=== PATIENT | male | born 1975 | race Caucasian/White ===

== ENCOUNTER 2023-04-07 00:28 | Day surgery (SDC) | payer BC, SELFPAY ==
[2023-03-27 15:03] VITALS: BMI 29.3
[2023-04-07 07:39] VITALS: BP 128/76; PULSE 60; RESP 18; TEMP 36.1; O2SAT 100; BMI 28.0
[2023-04-07] MEDS: LACTATED RINGERS 1,000 ML 150 ML IV CONT (07:47)
--- NOTE | 2023-04-07 08:18 | P.PNAN_ITS ---
Anes - Initial Pre Proc Eval Procedure: Operation Date: 04/07/23 08:30 Proposed Procedures p Screening Colonoscopy - Arturo Eagle MD Date/Time: 04/07/23 08:18 Surgeon: Arturo Eagle MD Pre Op Diagnosis: neoplasm screening Patient Data Age: 47 Gender: M Height: 1.78 m Weight: 88.5 kg Last Vital Signs Temp 97.0 F L 04/07/23 07:39 Pulse 60 04/07/23 07:39 Resp 18 04/07/23 07:39 BP 128/76 04/07/23 07:39 Pulse Ox 100 04/07/23 07:39 O2 Del Method Room Air 04/07/23 07:39 Allergies Allergy/AdvReac Type Severity Reaction Status Date / Time No Known Allergies Allergy Unknown Verified 03/27/23 15:18 Home Medications Medication Instructions Recorded Confirmed Type cetirizine 10 mg capsule (Zyrtec) 10 mg PO DAILY PRN Runny Nose 02/03/23 04/07/23 History multivitamin (One Daily 1 ea PO DAILY 02/03/23 04/07/23 History Multivitamin oral powder packet) Patient hx anesthesia problems: none Family hx anesthesia problems: none Results Review: All pre-operative results and documents have been reviewed as part of the pre- operative evaluation. PMFSH Past Medical History Medical History (Updated 04/07/23 @ 08:20 by Arturo Eagle MD) Hypercholesteremia Family History Family History (Updated 02/03/23 @ 11:13 by Nasim Pope MD) Father Heart disease Hypertension Mother Hypertension Grandparent Heart disease Grandparent Heart disease Diabetes mellitus Dementia Social History Social History (Updated 02/03/23 @ 11:04 by Linnea Rogers MA) Smoking status: Never smoker Alcohol intake: current Drinks per week: 30 Substance use: never Substance use type: does not use Lack of Transportation: No Lack of Food: Never True Current Housing: I Have Housing Concerned About Future Housing: No Difficulty Paying Gas/Electric Bills: No Difficulty Paying for Meds: No Currently Unemployed: No Education: Associate Degree Difficulty w/ Childcare or Family Care: No Living arrangements: with family Occupation/Education: occupation Gender identity (if verbalized by the patient): Male Sexual Orientation (if Verbalized by the Patient): Straight or Heterosexual Spiritual care concerns: No Anes - Eval Final PreProcedure Day of Procedure 04/07/23 08:18 Patient weight: normal Heart: regular rate and rhythm Lungs: clear to auscultation Airway: Mallampati scale class II Neurological: alert and oriented Last oral intake: >/= 8 hours ASA classification: II Emergent: no Anesthetic plan: proceed Anesthesia type and monitoring: general GIVS and standard monitoring Results Review: All pre-operative results and documents have been reviewed as part of the pre- operative evaluation. Informed Consent: The patient's anesthetic plan and its attendant risks and benefits were discussed with the patient/family/POA. Questions were solicited and answers provided to the satisfaction of the patient/family/POA.
--- NOTE | 2023-04-07 08:19 | PM.HPGS ---
History of Present Illness History of Present Illness Consent: Risks, benefits, and alternatives have been discussed and questions answered. Patient agrees to proceed with procedure. Chief complaint: neoplasm screening Narrative: Logan Da Silva III is a 47 year old male Presents for screening colonoscopy. Patient's current weight appetite and bowel movements are normal. Patient denies abdominal pain. He has had no bleeding. Family history noncontributory. Review of Systems Review of Systems: Review of systems noncontributory. [facility], [facility] Past Medical History Medical History (Updated 04/07/23 @ 08:20 by Arturo Eagle MD) Hypercholesteremia Family History Family History (Updated 02/03/23 @ 11:13 by Nasim Pope MD) Father Heart disease Hypertension Mother Hypertension Grandparent Heart disease Grandparent Heart disease Diabetes mellitus Dementia Social History Social History (Updated 02/03/23 @ 11:04 by Linnea Rogers MA) Smoking status: Never smoker Alcohol intake: current Drinks per week: 30 Substance use: never Substance use type: does not use Lack of Transportation: No Lack of Food: Never True Current Housing: I Have Housing Concerned About Future Housing: No Difficulty Paying Gas/Electric Bills: No Difficulty Paying for Meds: No Currently Unemployed: No Education: Associate Degree Difficulty w/ Childcare or Family Care: No Living arrangements: with family Occupation/Education: occupation Gender identity (if verbalized by the patient): Male Sexual Orientation (if Verbalized by the Patient): Straight or Heterosexual Spiritual care concerns: No Meds Home Medications and Allergies Home Medications Medication Instructions Recorded Confirmed Type cetirizine 10 mg capsule (Zyrtec) 10 mg PO DAILY PRN Runny Nose 02/03/23 04/07/23 History multivitamin (One Daily 1 ea PO DAILY 02/03/23 04/07/23 History Multivitamin oral powder packet) Allergies Allergy/AdvReac Type Severity Reaction Status Date / Time No Known Allergies Allergy Unknown Verified 03/27/23 15:18 Vital Signs Vital Signs - 24 hr 04/07/23 07:39 Temperature 97.0 F L Pulse Rate 60 Respiratory Rate 18 Blood Pressure 128/76 Pulse Oximetry 100 Oxygen Delivery Room Air Exam Narrative: Physical exam reveals patient to be alert. Vital signs stable. HEENT exam is unremarkable. Patient is anicteric. Lungs are clear to auscultation and percussion. Heart is without murmur or extra sounds. Abdomen bowel sounds are present soft nontender with no organomegaly. Digital external rectal exam is normal. Assessment and Plan Assessment and plan (1) Encounter for screening colonoscopy: Code(s): Z12.11 - Encounter for screening for malignant neoplasm of colon Status: Acute Assessment and Plan: Patient presents for screening colonoscopy. Appears to be at average risk for colon polyps. Further recommendations may be given after endoscopy.
[2023-04-07 08:45] VITALS: BP 122/77; PULSE 63; RESP 20; O2SAT 100
[2023-04-07 08:55] VITALS: BP 137/93; PULSE 61; RESP 16; O2SAT 100
[2023-04-07 09:05] VITALS: BP 140/93; PULSE 60; RESP 18; O2SAT 100
== END 2023-04-07 09:06 | disposition home or self-care (01) ==
PROVIDERS: PCP Family Medicine; Visit Provider Internal Medicine Gastroenterology
PROC: 0DJD8ZZ Inspection of Lower Intestinal Tract, Via Natural or Artificial Opening Endoscopic (ICD-10-PCS; CPT 45378; principal; 2023-04-07 08:30)
DX: Z12.11 Encounter for screening for malignant neoplasm of colon (principal); K64.8 Other hemorrhoids; E78.00 Pure hypercholesterolemia, unspecified
CPT/HCPCS: 45378; J2704; J7120